=== PATIENT | female | born 1995 | race Caucasian/White ===

== ENCOUNTER → 2021-05-07 20:06 | Outpatient (CLI) | payer MEDICAID, SELFPAY | PROVIDERS: Visit Provider Physician Assistant | DX: Z20.822 Contact with and (suspected) exposure to COVID-19 (principal) | CPT/HCPCS: 87635; U0005; U0003 ==

== ENCOUNTER → 2021-07-28 14:24 | Outpatient (CLI) | payer MEDICAID, SELFPAY ==
[2021-07-29 09:10] LABS: HIV - WCH Non-Reactive (Nonreactive); Hepatitis B Surface Antibody Non-Reactive; Hepatitis C Antibody Non-Reactive (Nonreactive); Syphilis Antibodies Non-reactive
[2021-07-30 22:06] LABS: Chlamydia By Nucleic Acid AMP Negative (Negative)
[2021-07-30 22:49] LABS: Gonococcus By Nucleic Acid AMP Negative (Negative)
[2021-08-06 19:44] LABS: HPV Reflexed? NOT INDICATED
== END ==
PROVIDERS: Visit Provider Obstetrics & Gynecology
DX: Z11.3 Encounter for screening for infections with a predominantly sexual mode of transmission (principal); Z12.4 Encounter for screening for malignant neoplasm of cervix
CPT/HCPCS: 36415; 86703; 86706; 86780; 86803; 87491; 87591; 88175; G0145

== ENCOUNTER 2022-02-26 15:42 | Outpatient (CLI) | payer MEDICAID, SELFPAY | END 2022-02-26 23:59 | disposition home or self-care (01) | PROVIDERS: Visit Provider Obstetrics & Gynecology | DX: N76.0 Acute vaginitis (principal); R30.0 Dysuria | CPT/HCPCS: 87077; 87086; 87088; 87186 ==